=== PATIENT | female | born 1970 | race Caucasian/White ===

== ENCOUNTER → 2019-04-01 16:18 | Outpatient (CLI) | payer OTHER, SELFPAY ==
[2019-04-01 17:47] LABS: Alanine Aminotransferase 15 IU/L (9-52); Albumin 4.2 g/dL (3.5-5.0); Albumin Globulin Ratio 1.3 (1.0-2.8); Alkaline Phosphatase 60 U/L (38-126); Aspartate Aminotransferase 21 IU/L (14-36); Bilirubin Total 0.5 mg/dL (0.2-1.3); Blood Urea Nitrogen 12 mg/dL (7-17); Calcium 9.3 mg/dL (8.4-10.2); Carbon Dioxide 28 mmol/L (22-32); Chloride 102 mmol/L (98-107); Estimated Glomerular Filt Rate > 60.0 mL/min (>60); Globulin 3.2 g/dL (1.7-4.1); Glucose 99 mg/dL (70-100); HEMOLYSIS < 15 (0-50); Lipase 100 U/L (23-300); Potassium 3.8 mmol/L (3.4-5.1); Sodium 140 mmol/L (137-145); Total Protein 7.4 g/dL (6.3-8.2)
[2019-04-01 17:57] LABS: Troponin I < 0.012 ng/mL (0.01-0.034)
[2019-04-01 17:59] LABS: Add Manual Diff / Slide Review NO; Basophils Absolute Auto 100 /uL (0-100); Basophils Percent Auto 0.6 % (0-2); Eosinophils Absolute Auto 300 /uL (0-450); Eosinophils Percent Auto 2.5 % (2-4); Hematocrit 43.8 % (36-46); Hemoglobin 14.7 g/dL (12.0-16.0); Lymphocytes Absolute Auto 3600 /uL (1100-4500); Lymphocytes Percent Auto 33.1 % (25-40); Mean Corpuscular HGB Conc 33.6 % (30-36); Mean Corpuscular Hemoglobin 29.8 PG (26-34); Mean Corpuscular Volume 88.6 fL (80-100); Monocytes Absolute Auto 800 /uL (0-900); Monocytes Percent Auto 7.2 % (3-14); Neutrophils Absolute Auto 6100 /uL (1500-7000); Neutrophils Percent Auto 56.6 % (50-75); Platelet Count 354 X10^3/uL (150-400); Red Blood Cell Count 4.94 X10^6/uL (4.0-5.2); Red Cell Distribution Width 13.2 % (11.6-14.8); White Blood Cell Count 10.7 X10^3/uL (4.5-11.0)
[2019-04-01 18:00] LABS: Monotest Negative (Negative)
[2019-04-01 18:38] LABS: Erythrocyte Sedimentation Rate 9 MM/HR (0-20)
== END ==
PROVIDERS: Visit Provider Physician Assistant
DX: J02.9 Acute pharyngitis, unspecified (principal); R10.12 Left upper quadrant pain
CPT/HCPCS: 36415; 80053; 83690; 84484; 85025; 85651; 86318

== ENCOUNTER 2019-04-03 12:19 | Emergency (ER) | payer OTHER, SELFPAY ==
[2019-04-03 12:56] VITALS: BP 130/81; PULSE 91; RESP 18; TEMP 36.3; O2SAT 96
[2019-04-03] MEDS: IBUPROFEN 400 MG TABLET 800 MG PO (13:06)
[2019-04-03 13:32] LABS: Influenza A and B by PCR Rapid Negative (Negative)
[2019-04-03 16:55] LABS: Add Manual Diff / Slide Review NO; Basophils Absolute Auto 100 /uL (0-100); Basophils Percent Auto 0.8 % (0-2); Eosinophils Absolute Auto 200 /uL (0-450); Eosinophils Percent Auto 1.8 % (2-4); Hematocrit 44.2 % (36-46); Hemoglobin 14.7 g/dL (12.0-16.0); Lymphocytes Absolute Auto 5400 /uL (1100-4500); Lymphocytes Percent Auto 41.7 % (25-40); Mean Corpuscular HGB Conc 33.2 % (30-36); Mean Corpuscular Hemoglobin 29.4 PG (26-34); Mean Corpuscular Volume 88.4 fL (80-100); Monocytes Absolute Auto 800 /uL (0-900); Monocytes Percent Auto 6.3 % (3-14); Neutrophils Absolute Auto 6300 /uL (1500-7000); Neutrophils Percent Auto 49.4 % (50-75); Platelet Count 369 X10^3/uL (150-400); Red Cell Distribution Width 13.5 % (11.6-14.8); White Blood Cell Count 12.9 X10^3/uL (4.5-11.0)
[2019-04-03 17:06] LABS: Alanine Aminotransferase 11 IU/L (9-52); Albumin Globulin Ratio 1.2 (1.0-2.8); Alkaline Phosphatase 62 U/L (38-126); Aspartate Aminotransferase 18 IU/L (14-36); BUN Creatinine Ratio 17.1 (6-22); Bilirubin Total 0.4 mg/dL (0.2-1.3); Blood Urea Nitrogen 12 mg/dL (7-17); Calcium 9.3 mg/dL (8.4-10.2); Carbon Dioxide 27 mmol/L (22-32); Chloride 104 mmol/L (98-107); Estimated Glomerular Filt Rate > 60.0 mL/min (>60); Globulin 3.4 g/dL (1.7-4.1); Glucose 82 mg/dL (70-100); HEMOLYSIS < 15 (0-50); Lactate (Lactic Acid) 1.2 mmol/L (0.7-2.1); Potassium 4.1 mmol/L (3.4-5.1); Sodium 139 mmol/L (137-145); Total Protein 7.4 g/dL (6.3-8.2)
[2019-04-03 17:21] VITALS: TEMP 36.4
[2019-04-03 17:22] VITALS: BP 124/81; PULSE 84; RESP 16; TEMP 36.4; O2SAT 97
[2019-04-03] MEDS: ACETAMINOPHEN 325 MG TABLET 975 MG PO (17:22)
[2019-04-03 17:38] LABS: Procalcitonin < 0.05 ng/mL (<0.5)
--- NOTE | 2019-04-04 01:44 | ED.FEVER ---
HPI - Fever <CRISTY Nash - Last Filed: 04/04/19 02:15> General Chief Complaint: Fever Stated Complaint: not feeling well, pain left side of face Time Seen by Provider: 04/03/19 15:45 Source: patient Mode of arrival: Ambulatory Limitations: no limitations History of Present Illness HPI Narrative: This is a 48-year-old female, former smoker, who presents to ED with left-sided neck pain which radiates down to jaw and side of her abdomen/body and towards posterior upper back. Patient reports he has headache, nausea, hoarse voice for last several days and has not been feeling well. She denies chest pain, breathing difficulty, or diarrhea. She was seen at walk-in clinic on Monday and had negative test for flu and mono spots. She again re-evaluated arm Monday at the walk-in clinic. Patient reports she has possible exposure to strep and flu infection at work. She is currently taking doxycycline since Monday that was walk-in clinic suggested. She reports not currently have a PCP in [facility] since she lives in [place] and stays in [facility] early due to her job. Related Data Home Medications Medication Instructions Recorded Confirmed estradiol 1 mg tablet 1 mg PO DAILY 03/31/19 04/01/19 pravastatin 40 mg tablet 40 mg PO DAILY 03/31/19 04/01/19 Allergies Allergy/AdvReac Type Severity Reaction Status Date / Time ciprofloxacin [From Cipro] Allergy hives Verified 04/01/19 15:16 erythromycin base Allergy Hives Verified 04/01/19 15:16 gabapentin Allergy hives Verified 04/01/19 15:16 morphine Allergy Hives Verified 04/01/19 15:16 oxycodone [From Percocet] Allergy Hives Verified 04/01/19 15:16 Penicillins Allergy Anaphylaxis Verified 04/01/19 15:16 Review of Systems <Kris Welsh REORDERING CLERK - Last Filed: 04/04/19 02:15> Review of Systems Narrative: General: See HPI HEENT: Right-sided neck and head pain. Denies sinus pain, ear pain, sore throat, difficulty swallowing, dizziness. Respiratory: Course a voice. Denies dyspnea, cough, wheezing, hemoptysis, sputum. Cardiovascular: Denies chest pain, palpitations, orthopnea, edema. Gastrointestinal: See HPI : Denies dysuria, frequency, incontinence, hematuria, urinary retention. Musculoskeletal: Denies weakness, joint pain or bony pain. Skin: Denies rash, skin lesions, or other. Neurologic: Denies weakness, headache, numbness, change in speech, confusion, seizures, incoordination. Psychiatric: No concerning psychosocial issues. 12-point review of systems is negative except for those stated above. PFSH <CRISTY Nash - Last Filed: 04/04/19 02:15> Medical History No significant past medical history (Acute) Surgical History No pertinent past surgical history (Acute) Social History Smoking Status: Former smoker Social History Smoking Status: Former smoker Exam <CRISTY Nash - Last Filed: 04/04/19 02:15> Narrative Exam Narrative: GEN: Alert, oriented x 3, well appearing and nourished, and in no acute distress. Head: Normal cephalic, atraumatic. No scalp or temporal tenderness, palpable mass or rash. EYES: Pupils are equal, round, and reactive to light and accommodation. Extraocular muscles are intact bilaterally. There is no subconjunctival hemorrhage, exudate and sclera non-icteric. ENT: Bilateral auditory canals and tympanic membranes clear. Hearing grossly intact. Nose without bleeding, purulent discharge or deviation. Facial sinuses nontender to palpate. Mucous membrane moist, no mucosal lesion. Throat without erythema, tonsillar hypertrophy or exudate. Uvula in midline, airway patent. Neck: Trachea in midline. No JVD. Tender with lymphadenopathy in anterior cervical lymph nodes to palpate. No masses or thyroid megaly. Supple, non-tender and no meningeal signs. CARDIAC: Normal regular rate and rhythm without murmurs, gallops, or rubs. No chest wall tenderness. No peripheral edema, cyanosis or pallor. Capillary refill is less than 2 seconds. RESPIRATORY: Lungs are cleat to auscultate bilaterally. No cough, wheezes, rales, or rhonchi. No stridor, respiratory distress, increase work of breathing, or accessary muscle used. ABD: Abdomen soft, nontender and non-distended. No guarding or rebound tenderness to palpate. Bowel sounds are normal in all 4 quadrants. There is no palpable masses or organomegaly. EXT: Full painless ROM of all extremities with no loss of sensation, strength, effusion or edema. SKIN: Warm, dry, normal color for patient. No erythema, lesions or rash over visible areas. BACK: Nontender without deformity or crepitance. Left midback tender to palpate without rash, warmth, edema. NEUROLOGICAL: Alert and oriented to place, time and person. Sensation and motor function intact bilaterally. No facial droops, dysphasia. PSYCHIATRIC: Good judgement and reason, without hallucinations, abnormal affect or abnormal behaviors during the examination. Initial Vital Signs Initial Vital Signs: Vital Signs Temperature 97.3 F L 04/03/19 12:56 Pulse Rate 91 H 04/03/19 12:56 Respiratory Rate 18 04/03/19 12:56 Blood Pressure 130/81 04/03/19 12:56 Pulse Oximetry 96 04/03/19 12:56 <Tamy Bryan DO - Last Filed: 04/08/19 19:36> Initial Vital Signs Initial Vital Signs: Vital Signs Temperature 97.3 F L 04/03/19 12:56 Pulse Rate 91 H 04/03/19 12:56 Respiratory Rate 18 04/03/19 12:56 Blood Pressure 130/81 04/03/19 12:56 Pulse Oximetry 96 04/03/19 12:56 Course <CRISTY Nash - Last Filed: 04/04/19 02:15> Orders Ordered: Discontinued Medications Acetaminophen (Tylenol) 975 mg PO NOW ONE Stop: 04/03/19 17:00 Last Admin: 04/03/19 17:22 Dose: 975 mg Documented by: KIRSTEN Ibuprofen (Advil) 800 mg PO NOW ONE Stop: 04/03/19 13:03 Last Admin: 04/03/19 13:06 Dose: 800 mg Documented by: MCKENNA <Tamy Bryan DO - Last Filed: 04/08/19 19:36> Orders Ordered: Discontinued Medications Acetaminophen (Tylenol) 975 mg PO NOW ONE Stop: 04/03/19 17:00 Last Admin: 04/03/19 17:22 Dose: 975 mg Documented by: KIRSTEN Ibuprofen (Advil) 800 mg PO NOW ONE Stop: 04/03/19 13:03 Last Admin: 04/03/19 13:06 Dose: 800 mg Documented by: MCKENNA MDM - Fever <LAURA NashP - Last Filed: 04/04/19 02:15> Differential Diagnosis Differential diagnosis: Likely pyelonephritis, viral infection, influenza and other (Monospot, strep throat) Medical Records Attestation: I reviewed the patient's medical records. Lab Data Attestation: I reviewed the patient's lab results. Result diagrams: 04/03/19 16:48 04/03/19 16:48 Labs: Lab Results 04/03/19 04/03/19 04/03/19 Range/Units 13:02 16:48 16:48 WBC 12.9 H (4.5-11.0) X10^3/uL RBC 5.00 (4.0-5.2) X10^6/uL Hgb 14.7 (12.0-16.0) g/dL Hct 44.2 (36-46) % MCV 88.4 (80-100) fL MCH 29.4 (26-34) PG MCHC 33.2 (30-36) % RDW 13.5 (11.6-14.8) % Plt Count 369 (150-400) X10^3/uL Neut % (Auto) 49.4 L (50-75) % Lymph % (Auto) 41.7 H (25-40) % Braxton % (Auto) 6.3 (3-14) % Eos % (Auto) 1.8 L (2-4) % Baso % (Auto) 0.8 (0-2) % Neut # (Auto) 6300 (1020-3565) /uL Lymph # (Auto) 5400 H (7713-1548) /uL Braxton # (Auto) 800 (0-900) /uL Eos # (Auto) 200 (0-450) /uL Baso # (Auto) 100 (0-100) /uL Sodium 139 (137-145) mmol/L Potassium 4.1 (3.4-5.1) mmol/L Chloride 104 (98-107) mmol/L Carbon Dioxide 27 (22-32) mmol/L BUN 12 (7-17) mg/dL Creatinine 0.70 (0.52-1.04) mg/dL Estimated GFR > 60.0 (>60) mL/min BUN/Creatinine Ratio 17.1 (6-22) Glucose 82 (70-100) mg/dL Lactate (0.7-2.1) mmol/L Calcium 9.3 (8.4-10.2) mg/dL Total Bilirubin 0.4 (0.2-1.3) mg/dL AST 18 (14-36) IU/L ALT 11 (9-52) IU/L Alkaline Phosphatase 62 (38-126) U/L Total Protein 7.4 (6.3-8.2) g/dL Albumin 4.0 (3.5-5.0) g/dL Globulin 3.4 (1.7-4.1) g/dL Albumin/Globulin Ratio 1.2 (1.0-2.8) Procalcitonin (<0.5) ng/mL Influenza A & B (PCR) Negative (Negative) 04/03/19 04/03/19 Range/Units 16:48 16:48 WBC (4.5-11.0) X10^3/uL RBC (4.0-5.2) X10^6/uL Hgb (12.0-16.0) g/dL Hct (36-46) % MCV (80-100) fL MCH (26-34) PG MCHC (30-36) % RDW (11.6-14.8) % Plt Count (150-400) X10^3/uL Neut % (Auto) (50-75) % Lymph % (Auto) (25-40) % Braxton % (Auto) (3-14) % Eos % (Auto) (2-4) % Baso % (Auto) (0-2) % Neut # (Auto) (5788-7077) /uL Lymph # (Auto) (2092-2205) /uL Braxton # (Auto) (0-900) /uL Eos # (Auto) (0-450) /uL Baso # (Auto) (0-100) /uL Sodium (137-145) mmol/L Potassium (3.4-5.1) mmol/L Chloride (98-107) mmol/L Carbon Dioxide (22-32) mmol/L BUN (7-17) mg/dL Creatinine (0.52-1.04) mg/dL Estimated GFR (>60) mL/min BUN/Creatinine Ratio (6-22) Glucose (70-100) mg/dL Lactate 1.2 (0.7-2.1) mmol/L Calcium (8.4-10.2) mg/dL Total Bilirubin (0.2-1.3) mg/dL AST (14-36) IU/L ALT (9-52) IU/L Alkaline Phosphatase (38-126) U/L Total Protein (6.3-8.2) g/dL Albumin (3.5-5.0) g/dL Globulin (1.7-4.1) g/dL Albumin/Globulin Ratio (1.0-2.8) Procalcitonin < 0.05 (<0.5) ng/mL Influenza A & B (PCR) (Negative) Point of Care Testing Rapid Strep A Negative Urine Dip Bedside Urine Glucose Negative Bedside Urine Bilirubin - Negative Bedside Urine Ketone - Negative Urine Specific [place] 1.020 Bedside Urine pH 5.5 Bedside Urine Protein +/- 15 Bedside Urine Urobilinogen - Negative Bedside Urine Nitrite - Negative Bedside Urine Leukocytes - Negative Esterase MDM Narrative Medical decision making narrative: This is a 48-year-old female who came in to ED for a re-evaluation after she was evaluated twice at walk-in clinic over since this weekend. Patient was diagnosed with pharyngitis and was prescribed doxycycline b.i.d. for 7 day course and had started on Monday. Patient also had cardiac workup done due to the pain was radiating to left side. EKG was normal sinus rhythm at that time with T abnormality otherwise cardiac enzymes were negative and lipase as well. Monospot test was negative at that time. ESR was negative. Today she had continuing symptoms and not feeling well. We checked strep PCR and flu swab which were both negative. Mildly elevated WBC without elevation in neutrophils but mildly elevated in lymphocytes. Chemistry test was unremarkable. Procalcitonin was negative. Urine appears to be infected to be considered for pyelonephritis. Patient reports no cough and x-ray was not obtained at this time. Patient was medicated with Tylenol and Motrin and reports improved symptoms. Patient was able to tolerate fluids while in ED. Given her symptoms and locations of her discomfort she may has viral illnesses/pharyngitis and ear infection and affecting lymph nodes. Patient advised to complete a course of antibiotic medication that she started, hydrate well, take Tylenol and/or Motrin as needed for fever and discomfort. Return precautions were discussed and verbalized the understanding and agrees with treatment plan. <Tamy Bryan, DO - Last Filed: 04/08/19 19:36> Lab Data Labs: Lab Results 04/03/19 04/03/19 04/03/19 Range/Units 13:02 16:48 16:48 WBC 12.9 H (4.5-11.0) X10^3/uL RBC 5.00 (4.0-5.2) X10^6/uL Hgb 14.7 (12.0-16.0) g/dL Hct 44.2 (36-46) % MCV 88.4 (80-100) fL MCH 29.4 (26-34) PG MCHC 33.2 (30-36) % RDW 13.5 (11.6-14.8) % Plt Count 369 (150-400) X10^3/uL Neut % (Auto) 49.4 L (50-75) % Lymph % (Auto) 41.7 H (25-40) % Braxton % (Auto) 6.3 (3-14) % Eos % (Auto) 1.8 L (2-4) % Baso % (Auto) 0.8 (0-2) % Neut # (Auto) 6300 (2799-8766) /uL Lymph # (Auto) 5400 H (7188-8469) /uL Braxton # (Auto) 800 (0-900) /uL Eos # (Auto) 200 (0-450) /uL Baso # (Auto) 100 (0-100) /uL Sodium 139 (137-145) mmol/L Potassium 4.1 (3.4-5.1) mmol/L Chloride 104 (98-107) mmol/L Carbon Dioxide 27 (22-32) mmol/L BUN 12 (7-17) mg/dL Creatinine 0.70 (0.52-1.04) mg/dL Estimated GFR > 60.0 (>60) mL/min BUN/Creatinine Ratio 17.1 (6-22) Glucose 82 (70-100) mg/dL Lactate (0.7-2.1) mmol/L Calcium 9.3 (8.4-10.2) mg/dL Total Bilirubin 0.4 (0.2-1.3) mg/dL AST 18 (14-36) IU/L ALT 11 (9-52) IU/L Alkaline Phosphatase 62 (38-126) U/L Total Protein 7.4 (6.3-8.2) g/dL Albumin 4.0 (3.5-5.0) g/dL Globulin 3.4 (1.7-4.1) g/dL Albumin/Globulin Ratio 1.2 (1.0-2.8) Procalcitonin (<0.5) ng/mL Influenza A & B (PCR) Negative (Negative) 04/03/19 04/03/19 Range/Units 16:48 16:48 WBC (4.5-11.0) X10^3/uL RBC (4.0-5.2) X10^6/uL Hgb (12.0-16.0) g/dL Hct (36-46) % MCV (80-100) fL MCH (26-34) PG MCHC (30-36) % RDW (11.6-14.8) % Plt Count (150-400) X10^3/uL Neut % (Auto) (50-75) % Lymph % (Auto) (25-40) % Braxton % (Auto) (3-14) % Eos % (Auto) (2-4) % Baso % (Auto) (0-2) % Neut # (Auto) (7504-1825) /uL Lymph # (Auto) (9584-9557) /uL Braxton # (Auto) (0-900) /uL Eos # (Auto) (0-450) /uL Baso # (Auto) (0-100) /uL Sodium (137-145) mmol/L Potassium (3.4-5.1) mmol/L Chloride (98-107) mmol/L Carbon Dioxide (22-32) mmol/L BUN (7-17) mg/dL Creatinine (0.52-1.04) mg/dL Estimated GFR (>60) mL/min BUN/Creatinine Ratio (6-22) Glucose (70-100) mg/dL Lactate 1.2 (0.7-2.1) mmol/L Calcium (8.4-10.2) mg/dL Total Bilirubin (0.2-1.3) mg/dL AST (14-36) IU/L ALT (9-52) IU/L Alkaline Phosphatase (38-126) U/L Total Protein (6.3-8.2) g/dL Albumin (3.5-5.0) g/dL Globulin (1.7-4.1) g/dL Albumin/Globulin Ratio (1.0-2.8) Procalcitonin < 0.05 (<0.5) ng/mL Influenza A & B (PCR) (Negative) Point of Care Testing Rapid Strep A Negative Urine Dip Bedside Urine Glucose Negative Bedside Urine Bilirubin - Negative Bedside Urine Ketone - Negative Urine Specific [place] 1.020 Bedside Urine pH 5.5 Bedside Urine Protein +/- 15 Bedside Urine Urobilinogen - Negative Bedside Urine Nitrite - Negative Bedside Urine Leukocytes - Negative Esterase Discharge Plan Departure Patient Disposition: Home Clinical Impression: Viral illness, Lymph node symptom Discharge Date/Time: 04/03/19 18:50 Instructions: DI for Viral Syndrome Activity Restrictions/Additional Instructions: You have been diagnosed with [viral syndrome. The discomfort is likely from lymph nodes hyper reactivity. The blood tests for early infection indicators are unremarkable. The chemistry cote unremarkable as well]. What to do: *Take your medications as directed. Please complete a course of antibiotic medication that you have already started. Please take [id number] Tylenol up to 4000 mg in 24 hour period. Ibuprofen 6-800 mg 3 times a day as needed. This medications are for pain and fever if you have. *Follow up with your primary care provider in 2-3 days, call for an appointment. Let them know you were seen in the ED and that we asked you to be seen in follow up. *Return to ED if you have any new, worsening, or concerning symptoms, such as [chest pain, breathing difficulty, unable to tolerate fluids, urinary symptoms, any acute symptoms]. Prescriptions: No Action estradiol 1 mg tablet 1 mg PO DAILY RF: 0 pravastatin 40 mg tablet 40 mg PO DAILY RF: 0 Referrals: [facility] [Outside] (Walk in Clinic) Stand Alone Forms: Work Release Note
== END 2019-04-03 18:50 | disposition home or self-care (01) ==
PROVIDERS: Emergency Medicine; Emergency Provider Nurse Practitioner Family
DX: B34.9 Viral infection, unspecified (principal); R09.89 Other specified symptoms and signs involving the circulatory and respiratory systems; J02.9 Acute pharyngitis, unspecified
CPT/HCPCS: 36415; 80053; 81003; 83605; 84145; 85025; 87400; 87502; 87880; 99283

== ENCOUNTER → 2019-05-22 10:50 | Outpatient (CLI) | payer OTHER, SELFPAY ==
[2019-05-22 12:10] LABS: B Type Natriuretic Peptide < 100 (<100)
[2019-05-22 12:19] LABS: Alanine Aminotransferase 14 IU/L (<35); Albumin 4.3 g/dL (3.5-5.0); Albumin Globulin Ratio 1.3 (1.0-2.8); Alkaline Phosphatase 78 U/L (38-126); Aspartate Aminotransferase 20 IU/L (14-36); BUN Creatinine Ratio 21.7 (6-22); Bilirubin Total 0.6 mg/dL (0.2-1.3); Blood Urea Nitrogen 13 mg/dL (7-17); Calcium 9.7 mg/dL (8.4-10.2); Carbon Dioxide 26 mmol/L (22-32); Chloride 104 mmol/L (98-107); Estimated Glomerular Filt Rate > 60.0 mL/min (>60); Globulin 3.2 g/dL (1.7-4.1); Glucose 98 mg/dL (70-100); HEMOLYSIS < 15 (0-50); Lipase 181 U/L (23-300); Potassium 4.4 mmol/L (3.4-5.1); Sodium 141 mmol/L (137-145); Total Protein 7.5 g/dL (6.3-8.2)
[2019-05-22 12:49] LABS: TSH w/ Reflex to FT4 1.63 uIU/mL (0.47-4.68)
== END ==
PROVIDERS: Visit Provider Physician Assistant
DX: J06.9 Acute upper respiratory infection, unspecified (principal); R63.5 Abnormal weight gain
CPT/HCPCS: 36415; 80053; 83690; 83880; 84443